=== PATIENT | female | born 1995 | race Caucasian/White ===

== ENCOUNTER 2016-10-23 23:35 | Emergency (ER) | payer OTHER ==
[~2016-10-23] VITALS: Ht 160 cm; Wt 72.6 kg
[2016-10-23 23:35] VITALS: BP 105/67
[~2016-10-23 23:35] MED LIST: ONDA4TAB10 SL; SULF1TAB24 PO
[2016-10-24] MEDS ORDERED: HYDROCODONE/APAP 5/325MG TABLET. PO ONE (00:15)
[2016-10-24] MEDS ORDERED: MORPHINE SULFATE 4 MG/ML DISP.SYRIN. IM ONE (00:45)
[2016-10-24] MEDS ORDERED: HYDR-971 PO (01:10)
[2016-10-24] MEDS ORDERED: ONDA4TAB7 PO (01:10)
--- NOTE | 2016-10-24 01:10 | PHYS DOC ---
Past Medical History Past Medical History: Other Additional Past Medical Histor: NF 1,Hypoglycemic. Past Surgical History: Tonsillectomy, Other Additional Past Surgical Histo: Adnoids. Alcohol Use: Occasionally Drug Use: None Adult General Chief Complaint Chief Complaint: UPPER EXTREMITY INJURY [facility] HPI 21-year-old female who was standing on a laundry basket and fell onto her right elbow on a concrete surface. She denies significant pain and difficulty with range of motion in the right upper extremity. She states she cannot move her right elbow secondary to pain. She also complains of some mild right wrist tenderness as well. She denies hitting her head or having any loss of consciousness. She denies any headache or neck pain. She denies any chest pain or shortness of breath. Review of Systems Review of Systems Constitutional: Denies fever or chills [] Eyes: Denies change in visual acuity, redness, or eye pain [] HENT: Denies nasal congestion or sore throat [] Respiratory: Denies cough or shortness of breath [] Cardiovascular: No additional information not addressed in HPI [] GI: Denies abdominal pain, nausea, vomiting, bloody stools or diarrhea [] : Denies dysuria or hematuria [] Musculoskeletal: Denies back pain, has joint pain [] Integument: Denies rash or skin lesions [] Neurologic: Denies headache, focal weakness or sensory changes [] Endocrine: Denies polyuria or polydipsia [] Current Medications Current Medications Current Medications Medications (Trade) Dose Ordered Sig/Ronaldo Start Time Stop Time Status Last Admin Dose Admin Acetaminophen/ Hydrocodone Bitart (Lortab 5/325) 1 tab 1X ONCE 10/24/16 00:15 10/24/16 00:16 DC 10/24/16 00:19 1 TAB Morphine Sulfate 4 mg 1X ONCE 10/24/16 00:45 10/24/16 00:46 DC 10/24/16 00:54 4 MG Ondansetron HCl (Zofran Odt) 4 mg 1X ONCE 10/24/16 01:15 10/24/16 01:16 DC 10/24/16 01:03 4 MG Allergies Allergies Allergies Coded Allergies Type Severity Reaction Last Updated Verified No Known Drug Allergies 09/13/13 No Physical Exam Physical Exam Constitutional: Well developed, well nourished, no acute distress, non-toxic appearance. [] HENT: Normocephalic, atraumatic, bilateral external ears normal, oropharynx moist, no oral exudates, nose normal. [] Eyes: PERRLA, EOMI, conjunctiva normal, no discharge. [] Neck: Normal range of motion, no tenderness, supple, no stridor. [] Cardiovascular:Heart rate regular rhythm, no murmur [] Lungs & Thorax: Bilateral breath sounds clear to auscultation [] Abdomen: Bowel sounds normal, soft, no tenderness, no masses, no pulsatile masses. [] Skin: Warm, dry, no erythema, no rash. [] Back: No tenderness, no CVA tenderness. [] Extremities: No tenderness, no cyanosis, no clubbing, ROM intact, no edema. [] Neurologic: Alert and oriented X 3, normal motor function, normal sensory function, no focal deficits noted. [] Psychologic: Affect normal, judgement normal, mood normal. [] Current Patient Data Vital Signs Vital Signs Date Time Temp Pulse Resp B/P Pulse Ox O2 Delivery O2 Flow Rate FiO2 10/24/16 00:54 20 97 Room Air 10/23/16 23:35 99.1 93 105/67 99.1 Lab Values Laboratory Tests Test 10/24/16 00:00 POC Urine HCG, Qualitative Hcg negative (Negative) EKG EKG [] Radiology/Procedures Radiology/Procedures 3 view of the elbow and right forearm as well as a possible right elbow fracture with evidence of a posterior fat pad sign. Course & Med Decision Making Course & Med Decision Making Pertinent Labs and Imaging studies reviewed. (See chart for details) This otherwise he'll be 21-year-old female who fell onto her right elbow was put in a posterior elbow splint and will follow closely with the orthopedic surgeon next several days with strict instruction remain nonweightbearing on the right upper extremity. She was given a prescription for pain medications and was given a sling for her splint. Dragon Disclaimer Dragon Disclaimer This electronic medical record was generated, in whole or in part, using a voice recognition dictation system. Departure Departure Impression: Primary Impression: Elbow injury Disposition: HOME, SELF-CARE Condition: STABLE Referrals: NO PCP (PCP) JOSE DAVID AYALA MD Patient Instructions: Elbow Injury-Brief Additional Instructions: Please remain non-weight bearing to the right upper extremity in your splint device until you can receive follow up with the orthopedic surgeon. Take your pain and nausea medication as needed. Return to the ER if you develop any worsening of your symptoms. Scripts Hydrocodone/Apap 5-325 ([place] 5-325 Tablet)1 Each Tablet1 Tab PO PRN Q6HRS PRN PAIN #14 TAB Prov:CHEO BLISS DO 10/24/16 Ondansetron Hcl (Zofran)4 Mg Tablet4 Mg PO BID PRN NAUSEA/VOMITING #10 TAB Prov:CHEO BLISS DO 10/24/16 CHEO BLISS DO Oct 24, 2016 01:10
[2016-10-24] MEDS ORDERED: ONDANSETRON ODT 4 MG TAB.RAPDIS PO ONE (01:15)
--- NOTE | 2016-10-24 02:56 | RAD ---
INDICATION: Trauma COMPARISON: None IMPRESSION: Right forearm: Two views obtained without definite acute fracture or dislocation. Right elbow: Four views obtained. There is a joint effusion seen which could be from soft tissue injury although occult fracture also in differential. There is no definitive well defined displaced fracture line identified although there is a questionable lucency through portion of the radial head on one view but this is a questionable finding. Electronically signed by: Kamari Pozo (Oct 24, 2016 02:54:28)
== END 2016-10-24 01:17 | disposition home or self-care (01) ==
LOC: ER 23:35
DX: S59.901A Unspecified injury of right elbow, initial encounter (principal); W19.XXXA Unspecified fall, initial encounter; Y93.89 Activity, other specified; Y92.89 Other specified places as the place of occurrence of the external cause; Y99.8 Other external cause status
CPT/HCPCS: 29105; 73080; 73090; 81025; 96372; 99284; J2270; Q0162

== ENCOUNTER 2016-12-27 10:23 | Emergency (ER) | payer OTHER ==
[~2016-12-27 10:23] MED LIST changes: +HYDR-971 PO; +ONDA4TAB7 PO
[2016-12-27 12:44] LABS: BILIRUBIN,URINE NEGATIVE (NEG); GLUCOSE,URINE NEGATIVE (NEG); NITRITE,URINE NEGATIVE (NEG); PH,URINE 7.5; PROTEIN,URINE NEGATIVE (NEG-TRACE); UROBILINOGEN,URINE 0.2 mg/dL (0.2 mg/dL)
[2016-12-27 12:57] LABS: RBC,URINE 0 /HPF (0-2)
[2016-12-27 12:58] LABS: BACTERIA,URINE FEW /HPF (0-FEW); SQUAMOUS EPITHELIAL CELL,UR MOD /LPF
[2016-12-27 13:08] VITALS: BP 98/59
[2016-12-27] MEDS ORDERED: FAMO20TA5 PO (13:17)
--- NOTE | 2016-12-27 13:17 | PHYS DOC ---
Past Medical History Past Medical History: Other Additional Past Medical Histor: NF 1, Hypoglycemic Past Surgical History: Tonsillectomy, Other Additional Past Surgical Histo: Adnoids Alcohol Use: Occasionally Drug Use: None Adult General Chief Complaint Chief Complaint: ABDOMINAL PAIN HPI HPI Patient is a 21 year old female who presents with left upper quadrant abdominal pain worse at night when she lays down. She also notes intermittent nausea and vomiting. States sometimes she has low back pain worse with movement. She states symptoms have been for the past 2-3 months. She had a neg home test this week. She notes regular menses until this month; had 1 day of heavy cycle about 1.5 wk ago; had regular cycle approx 2.5 weeks ago. She denies f/c, dark or bloody stools, dysuria, hematuria, vaginal bleeding or discharge. Review of Systems Review of Systems Constitutional: Denies fever or chills [] Eyes: Denies change in visual acuity, redness, or eye pain [] HENT: Denies nasal congestion or sore throat [] Respiratory: Denies cough or shortness of breath [] Cardiovascular: No additional information not addressed in HPI [] GI: Denies bloody stools or diarrhea [] : Denies dysuria or hematuria [] Musculoskeletal: Denies back pain or joint pain [] Integument: Denies rash or skin lesions [] Neurologic: Denies headache, focal weakness or sensory changes [] Endocrine: Denies polyuria or polydipsia [] Allergies Allergies Allergies Coded Allergies Type Severity Reaction Last Updated Verified No Known Drug Allergies 09/13/13 No Physical Exam Physical Exam Constitutional: Well developed, well nourished, no acute distress, non-toxic appearance. [] HENT: Normocephalic, atraumatic, bilateral external ears normal, oropharynx moist, nose normal. [] Eyes: PERRLA, EOMI. [] Neck: Normal range of motion, supple. [] Cardiovascular:Heart rate regular rhythm [] Lungs & Thorax: Bilateral breath sounds clear to auscultation [] Abdomen: Bowel sounds normal, soft, no tenderness. [] Skin: Warm, dry, no erythema, no rash. [] Back: No tenderness, no CVA tenderness. [] Extremities: No tenderness, ROM intact, no edema. [] Neurologic: Alert and oriented X 3, normal motor function, normal sensory function, no focal deficits noted. [] Psychologic: Affect normal, judgement normal, mood normal. [] Current Patient Data Vital Signs Vital Signs Date Time Temp Pulse Resp B/P Pulse Ox O2 Delivery O2 Flow Rate FiO2 12/27/16 13:08 90 16 98/59 100 Room Air 12/27/16 11:57 98.1 98.1 Lab Values Laboratory Tests Test 12/27/16 10:43 12/27/16 12:20 12/27/16 12:33 POC Urine HCG, Qualitative Hcg negative (Negative) Urine Collection Type Unknown Urine Color Yellow Urine Clarity Clear Urine pH 7.5 Urine Specific [place] 1.025 Urine Protein Negativemg/dL (NEG-TRACE) Urine Glucose (UA) Negativemg/dL (NEG) Urine Ketones (Stick) Negativemg/dL (NEG) Urine Blood Negative (NEG) Urine Nitrite Negative (NEG) Urine Bilirubin Negative (NEG) Urine Urobilinogen Dipstick 0.2mg/dL (0.2 mg/dL) Urine Leukocyte Esterase Small (NEG) Urine RBC 0/HPF (0-2) Urine WBC 11-20/HPF (0-4) Urine Squamous Epithelial Cells Mod/LPF Urine Bacteria Few/HPF (0-FEW) Urine Mucus Marked/LPF Glucose (Fingerstick) 82mg/dL (70-99) Course & Med Decision Making Course & Med Decision Making Pertinent Labs and Imaging studies reviewed. (See chart for details) Glucose is 84, UCG is neg, urine is unremarkable. Discussed possibility of GERD vs preimplantation bleeding vs completed miscarriage vs other. Discussed supportive care. Return precautions given. She understands and agrees with plan. Noelon Disclaimer Margo Disclaimer This electronic medical record was generated, in whole or in part, using a voice recognition dictation system. Departure Departure Impression: Primary Impression: Abdominal pain Disposition: HOME, SELF-CARE Condition: STABLE Referrals: NO PCP (PCP) Patient Instructions: Abdominal Pain (Nonspecific) Additional Instructions: Take famotidine for possible acid reflux. Follow up with your primary care doctor within 1 week. Return for any concerns. Scripts Famotidine 20 Mg Znhoog37 Mg PO BID #30 TAB Prov:Fuentes JONES MD 12/27/16 Problem Qualifiers Primary Impression: Abdominal pain Abdominal location: left upper quadrant Qualified Code: R10.12 - Left upper quadrant pain Fuentes JONES MD Dec 27, 2016 13:17
== END 2016-12-27 13:39 | disposition home or self-care (01) ==
LOC: ER 10:23
DX: R10.12 Left upper quadrant pain (principal); R11.2 Nausea with vomiting, unspecified; M54.5 Low back pain
CPT/HCPCS: 81001; 81025; 82947; 87086; 99284

== ENCOUNTER 2017-01-14 08:16 | Emergency (ER) | payer OTHER ==
[~2017-01-14] VITALS: Ht 162.6 cm; Wt 72.6 kg
[~2017-01-14 08:16] MED LIST changes: +FAMO20TA5 PO
[2017-01-14 08:38] VITALS: BP 108/68
[2017-01-14 08:56] LABS: BILIRUBIN,URINE NEGATIVE (NEG); GLUCOSE,URINE NEGATIVE (NEG); NITRITE,URINE NEGATIVE (NEG); PROTEIN,URINE NEGATIVE (NEG-TRACE); UROBILINOGEN,URINE 0.2 mg/dL (0.2 mg/dL)
[2017-01-14] MEDS ORDERED: ONDA4TAB10 SL (08:59)
[2017-01-14] MEDS ORDERED: LOPE2TAB27 PO (08:59)
--- NOTE | 2017-01-14 09:06 | PHYS DOC ---
Past Medical History Past Medical History: No Pertinent History, Other Additional Past Medical Histor: NF 1, Hypoglycemic Past Surgical History: Tonsillectomy, Other Additional Past Surgical Histo: Adenoids Alcohol Use: Occasionally Drug Use: None Adult General Chief Complaint Chief Complaint: diarrhea HPI HPI Patient is a 21 year old male who presents with diarrhea for 3 days. She states multiple stools, crampy abdominal pain when she is about stool. She's had nausea with vomiting. No known fevers, no known sick contacts. She's not attempted any symptom controlling medication. No abdominal surgeries, does not follow with primary care physician. Review of Systems Review of Systems Constitutional: Denies fever or chills [] Eyes: Denies change in visual acuity, redness, or eye pain [] HENT: Denies nasal congestion or sore throat [] Respiratory: Denies cough or shortness of breath [] Cardiovascular: Denies chest pain GI: per history of present illness : Denies dysuria or hematuria [] Musculoskeletal: Denies back pain or joint pain [] Integument: Denies rash or skin lesions [] Neurologic: Denies headache, focal weakness or sensory changes [] Allergies Allergies Allergies Coded Allergies Type Severity Reaction Last Updated Verified No Known Drug Allergies 09/13/13 No Physical Exam Physical Exam Constitutional: Well developed, well nourished, no acute distress, non-toxic appearance. [] HENT: Normocephalic, atraumatic, bilateral external ears normal, oropharynx moist, no oral exudates, nose normal. [] Eyes: PERRLA, EOMI, conjunctiva normal, no discharge. [] Neck: Normal range of motion, no tenderness, supple, no stridor. [] Cardiovascular:Heart rate regular rhythm, no murmur [] Lungs & Thorax: Bilateral breath sounds clear to auscultation [] Abdomen: Bowel sounds normal, soft, no tenderness, no masses, no pulsatile masses. No guarding, no peritoneal signs, nondistended Skin: Warm, dry, no erythema, no rash. [] Back: No tenderness, no CVA tenderness. [] Extremities: No tenderness, no cyanosis, no clubbing, ROM intact, no edema. [] Neurologic: Alert and oriented X 3, normal motor function, normal sensory function, no focal deficits noted. [] Psychologic: Affect normal, judgement normal, mood normal. [] Current Patient Data Vital Signs Vital Signs Date Time Temp Pulse Resp B/P (MAP) Pulse Ox O2 Delivery O2 Flow Rate FiO2 01/14/17 08:38 97.0 89 18 108/68 (81) 99 Room Air 97.0 Lab Values Laboratory Tests Test 01/14/17 07:53 POC Urine HCG, Qualitative Hcg negative (Negative) EKG EKG [] Radiology/Procedures Radiology/Procedures [] Course & Med Decision Making Course & Med Decision Making Pertinent Labs and Imaging studies reviewed. (See chart for details) Reviewed patient's medical record. Vital signs stable, afebrile. We'll treat for viral gastroenteritis with loperamide and Zofran ODT. Referral sheet given to the patient to schedule follow-up. Dragon Disclaimer Dragon Disclaimer This electronic medical record was generated, in whole or in part, using a voice recognition dictation system. Departure Departure Impression: Primary Impression: Viral gastroenteritis Disposition: HOME, SELF-CARE Condition: STABLE Patient Instructions: Viral Gastroenteritis, Diet for Diarrhea, Adult, Form - Excuse from Work, School, or Physical Activity Scripts Ondansetron (ZOFRAN ODT) 4 Mg Tab.rapdis 1 TAB SL Q8HRS Y for NAUSEA, #10 TAB Prov: KONRAD COELLO MD 01/14/17 Loperamide Hcl (LOPERAMIDE) 2 Mg Tablet 2 MG PO prn each watery stoo, #16 TAB do not take more than 8 tabs in 1 day Prov: KONRAD COELLO MD 01/14/17 KONRAD COELLO MD January 14, 2017 09:06
[2017-01-14 09:27] LABS: BACTERIA,URINE FEW /HPF (0-FEW); RBC,URINE >40 /HPF (0-2); SQUAMOUS EPITHELIAL CELL,UR MOD /LPF; WBC,URINE 0 /HPF (0-4)
== END 2017-01-14 09:03 | disposition home or self-care (01) ==
LOC: ER 09:01
DX: A08.4 Viral intestinal infection, unspecified (principal)
CPT/HCPCS: 81001; 81025; 99283

== ENCOUNTER 2017-02-20 12:20 | Emergency (ER) | payer OTHER ==
[~2017-02-20] VITALS: Ht 162.6 cm; Wt 76.2 kg
[~2017-02-20 12:20] MED LIST changes: +LOPE2TAB27 PO
[2017-02-20 12:25] VITALS: BP 107/55
[2017-02-20 13:15] LABS: BILIRUBIN,URINE NEGATIVE (NEG); GLUCOSE,URINE NEGATIVE (NEG); NITRITE,URINE NEGATIVE (NEG); PROTEIN,URINE NEGATIVE (NEG-TRACE); UROBILINOGEN,URINE 0.2 mg/dL (0.2 mg/dL)
[2017-02-20 13:21] LABS: BACTERIA,URINE MODERATE /HPF (0-FEW); RBC,URINE 0 /HPF (0-2); SQUAMOUS EPITHELIAL CELL,UR MOD /LPF
[2017-02-20 14:10] LABS: BASO % 0 % (0-3); EOS % 2 % (0-3); HEMATOCRIT 38.7 % (36.0-47.0); HEMOGLOBIN 13.5 g/dL (12.0-15.5); LYMPH % 29 % (24-48); MEAN CORPUSCULAR HEMOGLOBIN 31 pg (25-35); MEAN CORPUSCULAR HGB CONC 35 g/dL (31-37); MEAN CORPUSCULAR VOLUME 90 fL (79-100); MONO % 8 % (0-9); NEUT % 61 % (31-73); PLATELET COUNT 260 x10^3/uL (140-400)
[2017-02-20 14:11] LABS: CALCIUM 9.1 mg/dL (8.5-10.1); CREATININE 0.6 mg/dL (0.6-1.0); GFR 123.9; POTASSIUM 3.7 mmol/L (3.5-5.1)
[2017-02-20 14:17] LABS: ALBUMIN 3.9 g/dL (3.4-5.0); ALBUMIN/GLOBULIN RATIO 1.4 (1.0-1.7); TOTAL BILIRUBIN 0.9 mg/dL (0.2-1.0); TOTAL PROTEIN 6.7 g/dL (6.4-8.2)
--- NOTE | 2017-02-20 14:36 | RAD ---
Indication vaginal bleeding. Reportedly . There has been no confirmation of . A quantitative hCG value is pending and not available at the time of the interpretation of this exam. Initially transabdominal scans were obtained. Initial transabdominal scans were supplemented with transvaginal scans. The uterus measures approximately 10 x 6 x 5 cm. The endometrium is thickened measuring approximately 2.3 cm. At the fundus of the uterus there is a low-density mass which could represent a gestational sac. A pseudogestational sac is not excluded. No pole or yolk sac is seen. There is a hypoechoic mass associated with the left ovary measuring approximately 2.4 cm most compatible with a physiologic cyst. The right ovary appears unremarkable. IMPRESSION: Thickened endometrium. Low-density mass at the fundus of the uterus may represent a gestational sac. Diagnostic considerations include normal, early, . Ectopic is not excluded. The findings on this ultrasound should be correlated with quantitative hCG value. Physiologic cyst associated with the left ovary
[2017-02-20] MEDS ORDERED: CEPHALEXIN 250 MG CAPSULE. PO SCH (15:15)
[2017-02-20] MEDS ORDERED: CEPH-264 PO (15:15)
--- NOTE | 2017-02-20 21:08 | ED.ADGEN ---
Past Medical History Past Medical History: No Pertinent History, Other Additional Past Medical Histor: NF 1, Hypoglycemic, MISCARRIAGE Past Surgical History: Tonsillectomy, Other Additional Past Surgical Histo: Adenoids Alcohol Use: Occasionally Drug Use: None Adult General Chief Complaint Chief Complaint: VAGINAL BLEEDING HPI HPI Patient is a 21 year old woman, to with a history of 1 miscarriage, 6 week by dates, who presents the emergency department with a complaint of vaginal bleeding and cramping. Patient states that she had a positive test at home last week. She states that over the last several days she is expressing cramping, and then today she passed a large dark red clot while using the restroom. She denies any further bleeding, or cramping currently. Denies any lightheadedness or dizziness, any injuries, states she occasionally has some back pain. States she did experience some discomfort with urination that began today. Patient states she had a previous miscarriage, unclear etiology. She states she does have an appointment to follow up with her [employer], at [facility]. Patient is taking vitamins. Review of Systems Review of Systems Constitutional: Denies fever or chills. [] Eyes: Denies change in visual acuity. [] HENT: Denies nasal congestion or sore throat. [] Respiratory: Denies cough or shortness of breath. [] Cardiovascular: Denies chest pain or edema. [] GI: Denies abdominal pain, nausea, vomiting, bloody stools or diarrhea. [] : Denies dysuria. [] Musculoskeletal: Denies back pain or joint pain. [] Integument: Denies rash. [] Neurologic: Denies headache, focal weakness or sensory changes. [] Endocrine: Denies polyuria or polydipsia. [] Lymphatic: Denies swollen glands. [] Psychiatric: Denies depression or anxiety. [] Current Medications Current Medications Current Medications Medications (Trade) Dose Ordered Sig/Ronaldo Start Time Stop Time Status Last Admin Dose Admin Cephalexin HCl (Keflex) 500 mg BID 02/20/17 15:15 02/20/17 16:02 DC 02/20/17 15:30 500 MG Allergies Allergies Allergies Coded Allergies Type Severity Reaction Last Updated Verified No Known Drug Allergies 09/13/13 No Physical Exam Physical Exam Constitutional: Well developed, well nourished, no acute distress, non-toxic appearance. [] HENT: Normocephalic, atraumatic, bilateral external ears normal, oropharynx moist, no oral exudates, nose normal. [] Eyes: PERRLA, EOMI, conjunctiva normal, no discharge. [] Neck: Normal range of motion, no tenderness, supple, no stridor. [] Cardiovascular:Heart rate regular rhythm, no murmur [] Lungs & Thorax: Bilateral breath sounds clear to auscultation [] Abdomen: Bowel sounds normal, soft, no tenderness, no masses, no pulsatile masses. [] Skin: Warm, dry, no erythema, no rash. [] Back: No tenderness, no CVA tenderness. [] Extremities: No tenderness, no cyanosis, no clubbing, ROM intact, no edema. [] Neurologic: Alert and oriented X 3, normal motor function, normal sensory function, no focal deficits noted. [] Psychologic: Affect normal, judgement normal, mood normal. [] Current Patient Data Vital Signs Vital Signs Date Time Temp Pulse Resp B/P (MAP) Pulse Ox O2 Delivery O2 Flow Rate FiO2 02/20/17 12:25 98.7 86 18 107/55 (72) 99 Room Air 98.7 Lab Values Laboratory Tests Test 02/20/17 12:25 02/20/17 13:55 Urine Collection Type Void Urine Color Yellow Urine Clarity Clear Urine pH 6.0 Urine Specific [place] 1.025 Urine Protein Negative mg/dL (NEG-TRACE) Urine Glucose (UA) Negative mg/dL (NEG) Urine Ketones (Stick) 40 mg/dL (NEG) Urine Blood Negative (NEG) Urine Nitrite Negative (NEG) Urine Bilirubin Negative (NEG) Urine Urobilinogen Dipstick 0.2 mg/dL (0.2 mg/dL) Urine Leukocyte Esterase Small (NEG) Urine RBC 0 /HPF (0-2) Urine WBC 5-10 /HPF (0-4) Urine Squamous Epithelial Cells Mod /LPF Urine Bacteria Moderate /HPF (0-FEW) White Blood Count 7.0 x10^3/uL (4.0-11.0) Red Blood Count 4.30 x10^6/uL (3.50-5.40) Hemoglobin 13.5 g/dL (12.0-15.5) Hematocrit 38.7 % (36.0-47.0) Mean Corpuscular Volume 90 fL (79-100) Mean Corpuscular Hemoglobin 31 pg (25-35) Mean Corpuscular Hemoglobin Concent 35 g/dL (31-37) Red Cell Distribution Width 13.0 % (11.5-14.5) Platelet Count 260 x10^3/uL (140-400) Neutrophils (%) (Auto) 61 % (31-73) Lymphocytes (%) (Auto) 29 % (24-48) Monocytes (%) (Auto) 8 % (0-9) Eosinophils (%) (Auto) 2 % (0-3) Basophils (%) (Auto) 0 % (0-3) Neutrophils # (Auto) 4.2 x10^3uL (1.8-7.7) Lymphocytes # (Auto) 2.0 x10^3/uL (1.0-4.8) Monocytes # (Auto) 0.6 x10^3/uL (0.0-1.1) Eosinophils # (Auto) 0.2 x10^3/uL (0.0-0.7) Basophils # (Auto) 0.0 x10^3/uL (0.0-0.2) Maternal Serum HCG Beta Subunit 5710 mIU/mL (0-5) H Sodium Level 140 mmol/L (136-145) Potassium Level 3.7 mmol/L (3.5-5.1) Chloride Level 106 mmol/L (98-107) Carbon Dioxide Level 25 mmol/L (21-32) Anion Gap 9 (6-14) Blood Urea Nitrogen 8 mg/dL (7-20) Creatinine 0.6 mg/dL (0.6-1.0) Estimated GFR (Cockcroft-Gault) 123.9 BUN/Creatinine Ratio 13 (6-20) Glucose Level 89 mg/dL (70-99) Calcium Level 9.1 mg/dL (8.5-10.1) Total Bilirubin 0.9 mg/dL (0.2-1.0) Aspartate Amino Transferase (AST) 16 U/L (15-37) Alanine Aminotransferase (ALT) 21 U/L (14-59) Alkaline Phosphatase 61 U/L (46-116) Total Protein 6.7 g/dL (6.4-8.2) Albumin 3.9 g/dL (3.4-5.0) Albumin/Globulin Ratio 1.4 (1.0-1.7) Laboratory Tests 02/20/17 13:55 Laboratory Tests 02/20/17 13:55 Microbiology 02/20/17 Wet Prep - Final, Complete EKG EKG Not indicated. [] Radiology/Procedures Radiology/Procedures [][facility] [address] [place] [address] IMAGING REPORT Signed PATIENT: SASHA EATON ACCOUNT: [id number] : 1995 LOCATION: ER AGE: 21 SEX: F EXAM STATUS: REG ER ORD. PHYSICIAN: LUCY WEN DO REASON: Preg vag bleeding PROCEDURE: OB <14 WKS W/TV Indication vaginal bleeding. Reportedly . There has been no confirmation of . A quantitative hCG value is pending and not available at the time of the interpretation of this exam. Initially transabdominal scans were obtained. Initial transabdominal scans were supplemented with transvaginal scans. The uterus measures approximately 10 x 6 x 5 cm. The endometrium is thickened measuring approximately 2.3 cm. At the fundus of the uterus there is a low-density mass which could represent a gestational sac. A pseudogestational sac is not excluded. No pole or yolk sac is seen. There is a hypoechoic mass associated with the left ovary measuring approximately 2.4 cm most compatible with a physiologic cyst. The right ovary appears unremarkable. IMPRESSION: Thickened endometrium. Low-density mass at the fundus of the uterus may represent a gestational sac. Diagnostic considerations include normal, early, . Ectopic is not excluded. The findings on this ultrasound should be correlated with quantitative hCG value. Physiologic cyst associated with the left ovary DICTATED and SIGNED BY: DULCE FRANCOIS MD DATE: 02/20/17 1427 CC: LUCY WEN DO; NO PCP ~ Course & Med Decision Making Course & Med Decision Making Pertinent Labs and Imaging studies reviewed. (See chart for details) Patient well-appearing, is not experiencing any further bleeding at this time, no cramping currently. She states she did take Tylenol at home previously. Pelvic examination reveals a closed os, with a moderate amount of white discharge, no tenderness or rebound is identified. Ultrasound reveals a possible gestational sac versus a pseudocyst gestational sac, with some irregularity of the endometrium. I had a lengthy discussion at bedside with patient regarding his findings. Currently her beta quantitative assay is 5710, and the findings on ultrasound may correlate with an early single uterine , a pseudo-gestational sac consistent with a nonviable , or potentially an ectopic with a pseudo-gestational sac. We discussed the importance of the patient following up promptly with her [employer] for additional evaluation, patient started to call the office today, she is given a copy of her ultrasound results and beta quantitative assay number to review with her physician's office, to determine the course of action for managing this . She was instructed to continue her vitamins, she was also given Keflex, first dose in the ED, the patient for 1 week instructed to follow up for test of cure, she has bacteria in the urine and was experiencing some pain with urination. Otherwise laboratory studies were unremarkable, as was wet prep. Patient tolerated oral medications in the ED without issue, has had no further cramping or bleeding. We did discuss concerning symptoms that would return to the emergency department. Patient voiced understanding and agreement with precautions and plan as stated. Patient discharged home in stable condition with plan as above. Dragon Disclaimer Dragon Disclaimer This electronic medical record was generated, in whole or in part, using a voice recognition dictation system. Departure Impression: Primary Impression: Vaginal bleeding in Disposition: 01 HOME, SELF-CARE Condition: IMPROVED Scripts Cephalexin (KEFLEX) 500 Mg Capsule 1 CAP PO BID, #14 CAP Prov: LUCY WEN DO 02/20/17 LUCY WEN DO Feb 20, 2017 21:08
== END 2017-02-20 13:55 | disposition home or self-care (01) ==
LOC: ER 12:20
DX: O20.9 Hemorrhage in early pregnancy, unspecified (principal); O26.891 Other specified pregnancy related conditions, first trimester; R82.71 Bacteriuria; R30.9 Painful micturition, unspecified; Z3A.01 Less than 8 weeks gestation of pregnancy
CPT/HCPCS: 36415; 76801; 76817; 80053; 81001; 81025; 84702; 85027; 86900; 86901; 87086; 87491; 87591; 99285; Q0111

== ENCOUNTER 2017-03-10 12:41 | Emergency (ER) | payer OTHER ==
[~2017-03-10 12:41] MED LIST changes: +CEPH-264 PO
[2017-03-10] MEDS ORDERED: ACETAMINOPHEN 325 MG TABLET. PO ONE (13:15)
[2017-03-10] MEDS ORDERED: ONDANSETRON PF 4 MG/2 ML VIAL. IV ONE (13:15)
[2017-03-10] MEDS ORDERED: IV NORMAL SALINE 1000ML BAG 1,000 ML IV ONE ×2 (13:15→14:15)
--- NOTE | 2017-03-10 13:15 | PHYS DOC ---
Past Medical History Past Medical History: No Pertinent History, Other Additional Past Medical Histor: NF 1, Hypoglycemic, MISCARRIAGE Past Surgical History: Tonsillectomy, Other Additional Past Surgical Histo: Adenoids Alcohol Use: Occasionally Drug Use: None Adult General Chief Complaint Chief Complaint: VOMITING IN [facility] HPI Patient is a 21 year old female presents to the emergency department stating that she's been having some nausea and vomiting for the last 2 weeks. She states that she has vomited some any times in the last 24 hour she is unable to keep track. She denies any blood being in the emesis. Patient states her last menstrual period was in December. She states that she is approximately 8-10 weeks . She states that her [employer] has tried multiple different things for nausea and vomiting in which they have not helped. Patient is a 4 para 2 AB 1. Patient denies any abdominal pain. She denies any vaginal discharge. She does state that stings to urinate. Review of Systems Review of Systems Constitutional: Denies fever or chills [] Eyes: Denies change in visual acuity, redness, or eye pain [] HENT: Denies nasal congestion or sore throat [] Respiratory: Denies cough or shortness of breath [] Cardiovascular: No additional information not addressed in HPI [] GI: Denies abdominal pain, nausea, vomiting, bloody stools or diarrhea [] : dysuria denies hematuria [] Musculoskeletal: Denies back pain or joint pain [] Integument: Denies rash or skin lesions [] Neurologic: Denies headache, focal weakness or sensory changes [] Endocrine: Denies polyuria or polydipsia [] Current Medications Current Medications Current Medications Medications (Trade) Dose Ordered Sig/Ronaldo Start Time Stop Time Status Last Admin Dose Admin Acetaminophen (Tylenol) 650 mg 1X ONCE 03/10/17 13:15 03/10/17 13:16 DC 03/10/17 14:01 650 MG Ondansetron HCl (Zofran) 4 mg 1X ONCE 03/10/17 13:15 03/10/17 13:16 DC 03/10/17 14:00 4 MG Sodium Chloride 1,000 ml @ 1,000 mls/hr 1X ONCE 03/10/17 14:15 03/10/17 15:14 DC 03/10/17 14:50 1,000 MLS/HR Allergies Allergies Allergies Coded Allergies Type Severity Reaction Last Updated Verified No Known Drug Allergies 09/13/13 No Physical Exam Physical Exam Constitutional: Well developed, well nourished, no acute distress, non-toxic appearance. [] HENT: Normocephalic, atraumatic, bilateral external ears normal, oropharynx moist, no oral exudates, nose normal. [] Eyes: PERRLA, EOMI, conjunctiva normal, no discharge. [] Neck: Normal range of motion, no tenderness, supple, no stridor. [] Cardiovascular:Heart rate regular rhythm, no murmur [] Lungs & Thorax: Bilateral breath sounds clear to auscultation [] Abdomen: Bowel sounds normal, soft, no tenderness, no masses, no pulsatile masses. [] Skin: Warm, dry, no erythema, no rash. [] Back: No tenderness Extremities: No tenderness, no cyanosis, no clubbing, ROM intact, no edema. [] Neurologic: Alert and oriented X 3, normal motor function, normal sensory function, no focal deficits noted. [] Psychologic: Affect normal, judgement normal, mood normal. [] Current Patient Data Vital Signs Vital Signs Date Time Temp Pulse Resp B/P (MAP) Pulse Ox O2 Delivery O2 Flow Rate FiO2 03/10/17 13:12 98.5 68 18 86/53 (64) 96 Room Air 98.5 Lab Values Laboratory Tests Test 03/10/17 12:15 03/10/17 13:05 POC Urine HCG, Qualitative Hcg positive (Negative) Urine Collection Type Unknown Urine Color Yellow Urine Clarity Cloudy Urine pH 6.5 Urine Specific [place] 1.015 Urine Protein Negative mg/dL (NEG-TRACE) Urine Glucose (UA) Negative mg/dL (NEG) Urine Ketones (Stick) Trace mg/dL (NEG) Urine Blood Negative (NEG) Urine Nitrite Negative (NEG) Urine Bilirubin Negative (NEG) Urine Urobilinogen Dipstick 0.2 mg/dL (0.2 mg/dL) Urine Leukocyte Esterase Large (NEG) Urine RBC 0 /HPF (0-2) Urine WBC 5-10 /HPF (0-4) Urine Squamous Epithelial Cells Mod /LPF Urine Bacteria Moderate /HPF (0-FEW) Urine Mucus Marked /LPF EKG EKG [] Radiology/Procedures Radiology/Procedures [] Course & Med Decision Making Course & Med Decision Making Pertinent Labs and Imaging studies reviewed. (See chart for details) Patient's urine was positive for urinary tract infection. She is provided with 2 L of IV fluids as well as Zofran here in the emergency department. Patient tolerated by mouth challenge without difficulty. Patient will be discharged home in stable condition signs and symptoms to return back to emergency department as been provided. Patient was encouraged to follow-up with her OB/ [employer]. She was encouraged to drink plenty of fluids such as water and cranberry juice avoid cranberry juice cocktail, carbonated beverages, citrus fruits and alcohol and caffeine. Patient agrees with discharge instructions treatment regimens and follow-up recommendations. [] Dragon Disclaimer Dragon Disclaimer This electronic medical record was generated, in whole or in part, using a voice recognition dictation system. Departure Departure Impression: Primary Impression: UTI (urinary tract infection) Additional Impression: Vomiting of Disposition: 01 HOME, SELF-CARE (actually think that we have the) Condition: STABLE Referrals: NO PCP (PCP) Patient Instructions: Nausea and Vomiting, - Urinary Tract Infection , Urinary Tract Infection, [id number] Additional Instructions: Activity as tolerated activity as tolerated. Drink plenty of fluids such as water and cranberry juice. Avoid coverages cocktail, carbonated beverages, caffeine, citrus fruits and alcohol sees her considered irritants to the bladder. Medication as prescribed. Follow-up with your primary care physician in the next 7-10 days to make sure you cleared the urinary tract infection. Follow-up with your [employer]OR [employer]. Return back to emergency department sign symptoms of become worse. Scripts Ondansetron (ZOFRAN ODT) 4 Mg Tab.rapdis 1 TAB SL Q8HRS, #10 TAB Prov: ROSA MARIA HAINES APRN 03/10/17 Nitrofurantoin Monohyd/M-Cryst (MACROBID 100 MG CAPSULE) 100 Mg Capsule 1 CAP PO BID, #14 CAP Prov: ROSA MARIA HAINES APRN 03/10/17 Problem Qualifiers ROSA MAIRA HAINES APRN Mar 10, 2017 13:14
[2017-03-10 13:16] LABS: BILIRUBIN,URINE NEGATIVE (NEG); GLUCOSE,URINE NEGATIVE (NEG); NITRITE,URINE NEGATIVE (NEG); PH,URINE 6.5; PROTEIN,URINE NEGATIVE (NEG-TRACE); UROBILINOGEN,URINE 0.2 mg/dL (0.2 mg/dL)
[2017-03-10 13:29] LABS: BACTERIA,URINE MODERATE /HPF (0-FEW); RBC,URINE 0 /HPF (0-2); SQUAMOUS EPITHELIAL CELL,UR MOD /LPF
[2017-03-10 15:35] VITALS: BP 111/74
[2017-03-10] MEDS ORDERED: NITR100C62 PO (15:36)
[2017-03-10] MEDS ORDERED: ONDA4TAB10 SL (15:36)
== END 2017-03-10 16:50 | disposition home or self-care (01) ==
LOC: ER 12:41
DX: O23.41 Unspecified infection of urinary tract in pregnancy, first trimester (principal); O21.0 Mild hyperemesis gravidarum; Z3A.00 Weeks of gestation of pregnancy not specified
CPT/HCPCS: 81001; 81025; 87086; 96361; 96374; 99285; J2405; J7030

== ENCOUNTER 2018-10-06 12:30 | Emergency (ER) | payer OTHER ==
[~2018-10-06] VITALS: Ht 160 cm; Wt 91.6 kg
[~2018-10-06 12:30] MED LIST changes: +HYDR-3164 PO; -HYDR-971 PO; +NITR100C62 PO
--- NOTE | 2018-10-06 13:32 | PHYS DOC ---
Past Medical History Past Medical History: No Pertinent History, Other Additional Past Medical Histor: NEUROFIBROIDOSIS, MISCARRIAGE, HYPOGLYCEMIA Past Surgical History: Tonsillectomy, Tubal ligation, Other Additional Past Surgical Histo: ADDENOIDECTOMY Alcohol Use: Occasionally Drug Use: None Adult General Chief Complaint Chief Complaint: RECTAL BLEED HPI HPI 23-year-old female presents to ER with complaints of intermittent 1 year long history of blood in her stools. Patient reports over the past few months it is becoming more frequent. Patient reports she's been having intermittent lower abdominal pain radiating into her back which has been ongoing for past few days. Patient denies urinary or vaginal symptoms w/no concerns for STDs. Patient reports having tubal ligation last year after the of her third child. LMP 08/18. She reports her periods have been more irregular since tubal ligation last year. Patient reports intermittent nausea denies any vomiting or diarrhea episodes. Patient states she had bowel movement today denying any pain during and reports her stools were soft and may have had sm. amt of what appeared to be blood. She denies dizziness/lightheadedness, SOA, or swelling. Pt denies hx of Crohn's or other GI issues. Review of Systems Review of Systems Constitutional: Denies fever or chills. Denies fatigue Eyes: Denies change in visual acuity, redness, or eye pain [] HENT: Denies nasal congestion or sore throat [] Respiratory: Denies cough or shortness of breath [] Cardiovascular: No additional information not addressed in HPI [] GI: Denies vomiting or diarrhea.. Reports lower abd pain into bilat. lower back. Reports intermittent nausea. Reports blood in stool intermittent x1 yr : Denies dysuria or hematuria. Denies vaginal discharge/abnorm. bleeding Musculoskeletal: Denies joint pain. Reports bilat. lower back pain Integument: Denies rash, swelling or skin lesions [] Neurologic: Denies headache, focal weakness or sensory changes. Denies dizziness All other systems were reviewed and found to be within normal limits, except as documented in this note. Allergies Allergies Allergies Coded Allergies Type Severity Reaction Last Updated Verified No Known Drug Allergies 09/13/13 No Physical Exam Physical Exam Constitutional: Well developed, well nourished, no acute distress, non-toxic appearance. [] HENT: Normocephalic, atraumatic, oropharynx moist, nose normal. [] Eyes: Pupils equal, conjunctiva normal, no discharge. [] Neck: Normal range of motion, no tenderness, supple, no stridor. [] Cardiovascular: Heart rate regular rhythm, no murmur [] Lungs & Thorax: Bilateral breath sounds clear to auscultation. Resp. equal/ nonlabored Abdomen: Bowel sounds normal, soft- no distention/rigidity, diffuse tenderness in lower abd- no rebound tenderness or focal area, no masses, no pulsatile masses. [] Skin: Warm, dry, no erythema, no rash. [] Back: Full ROM, bilat. mild CVA tenderness. [] Extremities: No tenderness, no cyanosis, no clubbing, ROM intact, no edema. [] Neurologic: Alert and oriented X 3, normal motor function, normal sensory function, no focal deficits noted. [] Psychologic: Affect normal, judgement normal, mood normal. [] Current Patient Data Vital Signs Vital Signs Date Time Temp Pulse Resp B/P (MAP) Pulse Ox O2 Delivery O2 Flow Rate FiO2 10/06/18 15:30 83 18 123/76 (92) 99 Room Air 10/06/18 12:46 97.9 97.9 Lab Values Laboratory Tests Test 10/06/18 11:30 10/06/18 12:40 White Blood Count 6.7 x10^3/uL (4.0-11.0) Red Blood Count 4.41 x10^6/uL (3.50-5.40) Hemoglobin 13.5 g/dL (12.0-15.5) Hematocrit 39.9 % (36.0-47.0) Mean Corpuscular Volume 91 fL (79-100) Mean Corpuscular Hemoglobin 31 pg (25-35) Mean Corpuscular Hemoglobin Concent 34 g/dL (31-37) Red Cell Distribution Width 12.6 % (11.5-14.5) Platelet Count 243 x10^3/uL (140-400) Neutrophils (%) (Auto) 59 % (31-73) Lymphocytes (%) (Auto) 29 % (24-48) Monocytes (%) (Auto) 7 % (0-9) Eosinophils (%) (Auto) 4 % (0-3) H Basophils (%) (Auto) 0 % (0-3) Neutrophils # (Auto) 3.9 x10^3uL (1.8-7.7) Lymphocytes # (Auto) 1.9 x10^3/uL (1.0-4.8) Monocytes # (Auto) 0.5 x10^3/uL (0.0-1.1) Eosinophils # (Auto) 0.3 x10^3/uL (0.0-0.7) Basophils # (Auto) 0.0 x10^3/uL (0.0-0.2) Sodium Level 140 mmol/L (136-145) Potassium Level 3.8 mmol/L (3.5-5.1) Chloride Level 107 mmol/L (98-107) Carbon Dioxide Level 23 mmol/L (21-32) Anion Gap 10 (6-14) Blood Urea Nitrogen 10 mg/dL (7-20) Creatinine 0.6 mg/dL (0.6-1.0) Estimated GFR (Cockcroft-Gault) 121.8 BUN/Creatinine Ratio 17 (6-20) Glucose Level 95 mg/dL (70-99) Calcium Level 9.1 mg/dL (8.5-10.1) Total Bilirubin 1.0 mg/dL (0.2-1.0) Aspartate Amino Transferase (AST) 18 U/L (15-37) Alanine Aminotransferase (ALT) 40 U/L (14-59) Alkaline Phosphatase 86 U/L (46-116) Total Protein 6.2 g/dL (6.4-8.2) L Albumin 3.5 g/dL (3.4-5.0) Albumin/Globulin Ratio 1.3 (1.0-1.7) Lipase 58 U/L (73-393) L Urine Collection Type Unknown Urine Color Yellow Urine Clarity Clear Urine pH 7.5 Urine Specific [place] 1.020 Urine Protein Negative mg/dL (NEG-TRACE) Urine Glucose (UA) Negative mg/dL (NEG) Urine Ketones (Stick) Negative mg/dL (NEG) Urine Blood Negative (NEG) Urine Nitrite Negative (NEG) Urine Bilirubin Negative (NEG) Urine Urobilinogen Dipstick 0.2 mg/dL (0.2 mg/dL) Urine Leukocyte Esterase Moderate (NEG) Urine RBC Occ /HPF (0-2) Urine WBC 20-40 /HPF (0-4) Urine Squamous Epithelial Cells Mod /LPF Urine Bacteria Few /HPF (0-FEW) Urine Mucus Slight /LPF Urine Test Negative (NEG) Laboratory Tests 10/06/18 11:30 Laboratory Tests 10/06/18 11:30 Microbiology 10/06/18 Urine Culture - Final, Complete 10/06/18 Urine Culture Result 1 (MARIANA) - Final, Complete EKG EKG [] Radiology/Procedures Radiology/Procedures [] Course & Med Decision Making Course & Med Decision Making Pertinent Labs and Imaging studies reviewed. (See chart for details) 1435: Pt was evaluated in the ER for c/o 1 yr hx of intermittent blood in stool and in past few days she has developed lower abd pain into lower back. Discussed test results with patient- with WBCs NL at 6.7 no bands H&H stable at 13.5/39.9- UA with moderate leuks neg. for nitrates/blood and micro with 20-40 WBCs UCG neg. Offered fecal occult for further testing however with H&H stable and UA showing UTI patient is comfortable with no additional tests and is not wanting hemacult/rectal exam. She plans to follow-up with GI doctor so will provide GI referral info on discharge paperwork. Discussed UTI and plans for prescription for Keflex and Pyridium. Pt remains stable and nontoxic in appearance denying any diarrhea/bloody stools while in ER. At time of discussion she is in no visible distress- VS were stable and pt was afebrile. Discharge instructions discussed and education provided on s&s to return to ER for. Dragon Disclaimer Dragon Disclaimer This electronic medical record was generated, in whole or in part, using a voice recognition dictation system. Departure Departure Impression: Primary Impression: UTI (urinary tract infection) Additional Impression: Blood in stool Disposition: HOME, SELF-CARE Condition: STABLE Referrals: NO PCP (PCP) CHEO ENRIQUE MD Patient Instructions: Bloody Stools, Urinary Tract Infection Additional Instructions: Drink plenty of water. Tylenol and/or ibuprofen as directed on container as needed for pain. Avoid excessive amounts of ibuprofen and other NSAIDs as that can cause increased bleeding. Follow-up with gastrointestinal doctor for reevaluation and further care if bloody stools continue. Scripts Phenazopyridine Hcl (PYRIDIUM) 100 Mg Tablet 100 MG PO TID PRN for PAIN, #9 TAB 0 Refills Prov: GULSHAN JOSEPH APRN 10/06/18 Cephalexin (KEFLEX) 500 Mg Capsule 1 CAP PO BID, #14 CAP 0 Refills Prov: GULSHAN JOSEPH APRN 10/06/18 Problem Qualifiers GULSHAN JOSEPH APRN Oct 06, 2018 13:32
[2018-10-06 13:39] LABS: BASO % 0 % (0-3); EOS # 0.3 x10^3/uL (0.0-0.7); EOS % 4 % (0-3); HEMATOCRIT 39.9 % (36.0-47.0); HEMOGLOBIN 13.5 g/dL (12.0-15.5); LYMPH # 1.9 x10^3/uL (1.0-4.8); LYMPH % 29 % (24-48); MEAN CORPUSCULAR HEMOGLOBIN 31 pg (25-35); MEAN CORPUSCULAR HGB CONC 34 g/dL (31-37); MEAN CORPUSCULAR VOLUME 91 fL (79-100); MONO # 0.5 x10^3/uL (0.0-1.1); MONO % 7 % (0-9); NEUT # 3.9 x10^3uL (1.8-7.7); NEUT % 59 % (31-73); PLATELET COUNT 243 x10^3/uL (140-400); RED BLOOD COUNT 4.41 x10^6/uL (3.50-5.40); RED CELL DISTRIBUTION WIDTH 12.6 % (11.5-14.5); WHITE BLOOD COUNT 6.7 x10^3/uL (4.0-11.0)
[2018-10-06 13:49] LABS: U PREG PATIENT NEGATIVE (NEG)
[2018-10-06 13:54] LABS: BILIRUBIN,URINE NEGATIVE (NEG); CLARITY,URINE CLEAR; COLOR,URINE YELLOW; NITRITE,URINE NEGATIVE (NEG); PH,URINE 7.5; PROTEIN,URINE NEGATIVE (NEG-TRACE); UROBILINOGEN,URINE 0.2 mg/dL (0.2 mg/dL)
[2018-10-06 13:54] LABS: CALCIUM 9.1 mg/dL (8.5-10.1); CREATININE 0.6 mg/dL (0.6-1.0); GFR 121.8; POTASSIUM 3.8 mmol/L (3.5-5.1)
[2018-10-06 13:57] LABS: ALBUMIN 3.5 g/dL (3.4-5.0); ALBUMIN/GLOBULIN RATIO 1.3 (1.0-1.7); TOTAL PROTEIN 6.2 g/dL (6.4-8.2)
[2018-10-06 14:14] LABS: BACTERIA,URINE FEW /HPF (0-FEW); RBC,URINE OCC /HPF (0-2); SQUAMOUS EPITHELIAL CELL,UR MOD /LPF; WBC,URINE 20-40 /HPF (0-4)
[2018-10-06] MEDS ORDERED: CEPH-264 PO (14:46)
[2018-10-06] MEDS ORDERED: PHEN100T82 PO (14:46)
[2018-10-06 15:30] VITALS: BP 123/76
== END 2018-10-06 15:31 | disposition home or self-care (01) ==
LOC: ER 12:30
DX: N39.0 Urinary tract infection, site not specified (principal); R11.0 Nausea; K92.1 Melena; Z90.89 Acquired absence of other organs; Z98.51 Tubal ligation status
CPT/HCPCS: 36415; 80053; 81001; 81025; 83690; 85025; 87086; 99283

== ENCOUNTER 2019-08-22 16:37 | Emergency (ER) | payer OTHER ==
[~2019-08-22] VITALS: Ht 160 cm; Wt 79.4 kg
[~2019-08-22 16:37] MED LIST changes: +PHEN100T82 PO
[2019-08-22] MEDS ORDERED: MORPHINE SULFATE 10 MG/ML VIAL. IV STA (16:53)
[2019-08-22] MEDS ORDERED: ONDANSETRON PF 4 MG/2 ML VIAL. IV ONE (17:00)
[2019-08-22] MEDS ORDERED: IV NORMAL SALINE 1000ML BAG 1,000 ML IV ONE (17:00)
--- NOTE | 2019-08-22 17:02 | PHYS DOC ---
Past Medical History Past Medical History: No Pertinent History, Other Additional Past Medical Histor: NEUROFIBROIDOSIS, MISCARRIAGE, HYPOGLYCEMIA Past Surgical History: Tonsillectomy, Tubal ligation, Other Additional Past Surgical Histo: ADDENOIDECTOMY Alcohol Use: Occasionally Drug Use: None Adult General Chief Complaint Chief Complaint: ABDOMINAL PAIN HPI HPI Patient is a 24 year old female who presents with abdominal pain has been ongoing for 2 weeks. The patient has been running a fever last 3 days. She states that she's been running 101 fever. She has associated symptoms of nausea. She's been taking Tylenol and Motrin. She also has been having some diarrhea. The pain is localized to the right lower quadrant. She reports her pain as 7 out of 10 in severity and sharp. The patient states that when she is driving or bending over that her stomach hurts when he hits bumps. It sometimes hurts when she is walking. She states that she is currently on her period. Review of Systems Review of Systems Constitutional: Reports fever or chills [] Eyes: Denies change in visual acuity, redness, or eye pain [] HENT: Denies nasal congestion or sore throat [] Respiratory: Denies cough or shortness of breath [] Cardiovascular: No additional information not addressed in HPI [] GI: Reports abdominal pain, nausea, and diarrhea [] : Denies dysuria or hematuria [] Musculoskeletal: Denies back pain or joint pain [] Integument: Denies rash or skin lesions [] Neurologic: Denies headache, focal weakness or sensory changes [] Complete systems were reviewed and found to be within normal limits, except as documented in this note. Current Medications Current Medications Current Medications Medications (Trade) Dose Ordered Sig/Ronaldo Start Time Stop Time Status Last Admin Dose Admin Iohexol (Omnipaque 300 Mg/ml) 75 ml 1X ONCE 08/22/19 17:15 08/22/19 17:16 DC 08/22/19 17:15 75 ML Morphine Sulfate (Morphine Sulfate) 5 mg 1X STAT 08/22/19 16:53 08/22/19 16:55 DC 08/22/19 17:12 5 MG Ondansetron HCl (Zofran) 4 mg 1X ONCE 08/22/19 17:00 08/22/19 17:01 DC 08/22/19 17:12 4 MG Sodium Chloride 1,000 ml @ 1,000 mls/hr 1X ONCE 08/22/19 17:00 08/22/19 17:59 DC 08/22/19 17:12 1,000 MLS/HR Allergies Allergies Allergies Coded Allergies Type Severity Reaction Last Updated Verified wool Allergy Unknown 08/22/19 Yes Physical Exam Physical Exam Constitutional: Well developed, well nourished, no acute distress, non-toxic appearance. [] HENT: Normocephalic, atraumatic, bilateral external ears normal, oropharynx moist, no oral exudates, nose normal. [] Eyes: PERRLA, EOMI, conjunctiva normal, no discharge. [] Neck: Normal range of motion, no tenderness, supple, no stridor. [] Cardiovascular:Heart rate regular rhythm, no murmur [] Lungs & Thorax: Bilateral breath sounds clear to auscultation [] Abdomen: Bowel sounds normal, soft, RLQ tenderness, rebound tenderness, rovsin g's sign, no masses, no pulsatile masses. [] Skin: Warm, dry, no erythema, no rash. [] Neurologic: Alert and oriented X 3, normal motor function, normal sensory function, no focal deficits noted. [] Psychologic: Affect normal, judgement normal, mood normal. [] Current Patient Data Vital Signs Vital Signs Date Time Temp Pulse Resp B/P (MAP) Pulse Ox O2 Delivery O2 Flow Rate FiO2 08/22/19 18:35 94 18 133/82 (99) 100 Room Air 08/22/19 16:40 98.7 98.7 Lab Values Laboratory Tests Test 08/22/19 16:40 08/22/19 16:51 08/22/19 17:00 Urine Collection Type Unknown Urine Color [place] Urine Clarity Cloudy Urine pH 6.0 Urine Specific [place] >=1.030 Urine Protein 30 mg/dL (NEG-TRACE) Urine Glucose (UA) Negative mg/dL (NEG) Urine Ketones (Stick) 15 mg/dL (NEG) Urine Blood Large (NEG) Urine Nitrite Negative (NEG) Urine Bilirubin Negative (NEG) Urine Urobilinogen Dipstick 0.2 mg/dL (0.2 mg/dL) Urine Leukocyte Esterase Moderate (NEG) Urine RBC Tntc /HPF (0-2) Urine WBC 11-20 /HPF (0-4) Urine Squamous Epithelial Cells Many /LPF Urine Bacteria Moderate /HPF (0-FEW) Urine Mucus Marked /LPF Influenza Type A Antigen Negative (NEGATIVE) Influenza Type B Antigen Positive (NEGATIVE) White Blood Count 4.0 x10^3/uL (4.0-11.0) Red Blood Count 4.57 x10^6/uL (3.50-5.40) Hemoglobin 14.1 g/dL (12.0-15.5) Hematocrit 41.2 % (36.0-47.0) Mean Corpuscular Volume 90 fL (79-100) Mean Corpuscular Hemoglobin 31 pg (25-35) Mean Corpuscular Hemoglobin Concent 34 g/dL (31-37) Red Cell Distribution Width 12.7 % (11.5-14.5) Platelet Count 216 x10^3/uL (140-400) Neutrophils (%) (Auto) 64 % (31-73) Lymphocytes (%) (Auto) 22 % (24-48) L Monocytes (%) (Auto) 11 % (0-9) H Eosinophils (%) (Auto) 3 % (0-3) Basophils (%) (Auto) 1 % (0-3) Neutrophils # (Auto) 2.6 x10^3/uL (1.8-7.7) Lymphocytes # (Auto) 0.9 x10^3/uL (1.0-4.8) L Monocytes # (Auto) 0.4 x10^3/uL (0.0-1.1) Eosinophils # (Auto) 0.1 x10^3/uL (0.0-0.7) Basophils # (Auto) 0.0 x10^3/uL (0.0-0.2) Sodium Level 143 mmol/L (136-145) Potassium Level 3.4 mmol/L (3.5-5.1) L Chloride Level 105 mmol/L (98-107) Carbon Dioxide Level 26 mmol/L (21-32) Anion Gap 12 (6-14) Blood Urea Nitrogen 8 mg/dL (7-20) Creatinine 0.7 mg/dL (0.6-1.0) Estimated GFR (Cockcroft-Gault) 101.1 BUN/Creatinine Ratio 11 (6-20) Glucose Level 99 mg/dL (70-99) Lactic Acid Level 1.3 mmol/L (0.4-2.0) Calcium Level 8.7 mg/dL (8.5-10.1) Total Bilirubin 0.5 mg/dL (0.2-1.0) Aspartate Amino Transferase (AST) 41 U/L (15-37) H Alanine Aminotransferase (ALT) 56 U/L (14-59) Alkaline Phosphatase 78 U/L (46-116) Creatine Kinase 66 U/L (26-192) Total Protein 7.2 g/dL (6.4-8.2) Albumin 4.0 g/dL (3.4-5.0) Albumin/Globulin Ratio 1.3 (1.0-1.7) Laboratory Tests 08/22/19 17:00 Laboratory Tests 08/22/19 17:00 EKG EKG [] Radiology/Procedures Radiology/Procedures [][facility] [address] [place] [address] IMAGING REPORT Signed PATIENT: SASHA EATON SACCOUNT: [id number] : 1995 LOCATION: ER AGE: 24 SEX: F EXAM STATUS: REG ER ORD. PHYSICIAN: TANNER BERG APRN REASON: RLQ abdominal pain, fever PROCEDURE: CT ABD PELV W/ IV CONTRST ONLY EXAM: CT Abdomen and Pelvis with IV contrast CLINICAL HISTORY: Right lower quadrant abdominal pain, fevers . COMPARISON: none TECHNIQUE: Helical CT of the abdomen and pelvis was performed following the administration of intravenous contrast. Axial, coronal and sagittal reformatted images were generated. PQRS compliance statement - One or more of the following individualized dose reduction techniques were utilized for this study: 1. Automated exposure control 2. Adjustment of the mA and/or kV according to patient size 3. Use of iterative reconstruction technique FINDINGS: Lower chest: Linear opacities in the lingula and medial middle lobe likely scarring/atelectasis. Abdomen and Pelvis: No focal liver lesion. Liver is upper limits normal in size measuring 17.9 cm in length. Gallbladder is normal. No biliary ductal dilatation. Spleen is unremarkable. Adrenal glands and pancreas are unremarkable. Symmetric nephrograms. No focal renal lesion. No hydronephrosis. Appendix is normal. No small or large bowel dilatation. Moderate colonic stool content. No bowel obstruction. A few colonic diverticula are seen. No evidence for acute diverticulitis. Small fat-containing periumbilical hernia. No abdominal or pelvic lymphadenopathy. No abdominal or pelvic ascites. Endometrial prominence likely physiologic. No abdominal or pelvic lymphadenopathy. Bones: Osseous structures are grossly unremarkable. IMPRESSION: 1. Appendix is normal. 2. No evidence of bowel obstruction. 3. No abdominal or pelvic lymphadenopathy. 4. No free or loculated abdominal or pelvic collection. Electronically signed by: Jozef Naylor MD (08/22/2019 6:51 PM) [facility] DICTATED and SIGNED BY: JOZEF NAYLOR MD DATE: 08/22/19 482 Course & Med Decision Making Course & Med Decision Making Pertinent Labs and Imaging studies reviewed. (See chart for details) Will get labs, CT, and urine. Will give supportive care. Influenza is positive. Patient also has moderate leukocytes in urine and labs are otherwise unremarkable. Dragon Disclaimer Dragon Disclaimer This electronic medical record was generated, in whole or in part, using a voice recognition dictation system. Departure Departure Impression: Primary Impression: UTI (urinary tract infection) Additional Impression: Influenza Disposition: 01 HOME, SELF-CARE Condition: STABLE Referrals: NO PCP (PCP) Patient Instructions: Influenza Facts, Influenza, Adult, Urinary Tract Infection Additional Instructions: Thank you for visiting [facility]. We appreciate you trusting us with your care. If any additional problems come up don't hesitate to return to visit us. Please follow up with your primary care provider so they can plan additional care if needed and know about the problem that you had. If symptoms worsen come back to the Emergency Department. Any concerning symptoms that start such as chest pain, shortness of air, weakness or numbness on one side of the body, running high fevers or any other concerning symptoms return to the ER. Please fill your medications at any pharmacy and follow the prescription instructions. Please make sure to drink plenty of fluids. If you are unable to drink fluids please return to the ER. Scripts Ondansetron (ONDANSETRON ODT) 4 Mg Tab.rapdis 1 TAB PO PRN Q6-8HRS PRN for NAUSEA, #16 TAB Prov: TANNER BERG APRN 08/22/19 Cephalexin (KEFLEX) 500 Mg Capsule 1 CAP PO BID for 7 Days, #14 CAP 0 Refills Prov: TANNER BERG APRN 08/22/19 Problem Qualifiers TANNER BERG APRN Aug 22, 2019 17:02
[2019-08-22 17:06] LABS: BILIRUBIN,URINE NEGATIVE (NEG); CLARITY,URINE CLOUDY; COLOR,URINE AMBER; NITRITE,URINE NEGATIVE (NEG); PROTEIN,URINE 30 mg/dL (NEG-TRACE); UROBILINOGEN,URINE 0.2 mg/dL (0.2 mg/dL)
[2019-08-22 17:14] LABS: BASO % 1 % (0-3); EOS # 0.1 x10^3/uL (0.0-0.7); EOS % 3 % (0-3); HEMATOCRIT 41.2 % (36.0-47.0); HEMOGLOBIN 14.1 g/dL (12.0-15.5); LYMPH # 0.9 x10^3/uL (1.0-4.8); LYMPH % 22 % (24-48); MEAN CORPUSCULAR HEMOGLOBIN 31 pg (25-35); MEAN CORPUSCULAR HGB CONC 34 g/dL (31-37); MEAN CORPUSCULAR VOLUME 90 fL (79-100); MONO # 0.4 x10^3/uL (0.0-1.1); MONO % 11 % (0-9); NEUT # 2.6 x10^3/uL (1.8-7.7); NEUT % 64 % (31-73); PLATELET COUNT 216 x10^3/uL (140-400); RED BLOOD COUNT 4.57 x10^6/uL (3.50-5.40); RED CELL DISTRIBUTION WIDTH 12.7 % (11.5-14.5)
[2019-08-22] MEDS ORDERED: IOHEXOL 300 MG/ML 100ML VIAL. IV ONE (17:15)
[2019-08-22 17:18] LABS: SQUAMOUS EPITHELIAL CELL,UR MANY /LPF
[2019-08-22 17:19] LABS: BACTERIA,URINE MODERATE /HPF (0-FEW); RBC,URINE TNTC /HPF (0-2)
[2019-08-22 17:21] LABS: INFLUENZA A PATIENT NEGATIVE (NEGATIVE)
[2019-08-22 17:22] LABS: INFLUENZA B PATIENT POSITIVE (NEGATIVE)
[2019-08-22 17:24] LABS: CALCIUM 8.7 mg/dL (8.5-10.1); CREATININE 0.7 mg/dL (0.6-1.0); GFR 101.1; POTASSIUM 3.4 mmol/L (3.5-5.1)
[2019-08-22 17:31] LABS: ALBUMIN/GLOBULIN RATIO 1.3 (1.0-1.7); TOTAL BILIRUBIN 0.5 mg/dL (0.2-1.0); TOTAL PROTEIN 7.2 g/dL (6.4-8.2)
[2019-08-22 18:35] VITALS: BP 133/82
--- NOTE | 2019-08-22 18:54 | RAD ---
EXAM: CT Abdomen and Pelvis with IV contrast CLINICAL HISTORY: Right lower quadrant abdominal pain, fevers . COMPARISON: none TECHNIQUE: Helical CT of the abdomen and pelvis was performed following the administration of intravenous contrast. Axial, coronal and sagittal reformatted images were generated. PQRS compliance statement - One or more of the following individualized dose reduction techniques were utilized for this study: 1. Automated exposure control 2. Adjustment of the mA and/or kV according to patient size 3. Use of iterative reconstruction technique FINDINGS: Lower chest: Linear opacities in the lingula and medial middle lobe likely scarring/atelectasis. Abdomen and Pelvis: No focal liver lesion. Liver is upper limits normal in size measuring 17.9 cm in length. Gallbladder is normal. No biliary ductal dilatation. Spleen is unremarkable. Adrenal glands and pancreas are unremarkable. Symmetric nephrograms. No focal renal lesion. No hydronephrosis. Appendix is normal. No small or large bowel dilatation. Moderate colonic stool content. No bowel obstruction. A few colonic diverticula are seen. No evidence for acute diverticulitis. Small fat-containing periumbilical hernia. No abdominal or pelvic lymphadenopathy. No abdominal or pelvic ascites. Endometrial prominence likely physiologic. No abdominal or pelvic lymphadenopathy. Bones: Osseous structures are grossly unremarkable. IMPRESSION: 1. Appendix is normal. 2. No evidence of bowel obstruction. 3. No abdominal or pelvic lymphadenopathy. 4. No free or loculated abdominal or pelvic collection. Electronically signed by: Jozef Naylor MD (08/22/2019 6:51 PM) [facility]
[2019-08-22] MEDS ORDERED: ONDA4TAB12 PO (19:09)
[2019-08-22] MEDS ORDERED: CEPH-264 PO (19:09)
== END 2019-08-22 19:24 | disposition home or self-care (01) ==
LOC: ER 16:37
DX: N39.0 Urinary tract infection, site not specified (principal); J10.1 Influenza due to other identified influenza virus with other respiratory manifestations; Z98.51 Tubal ligation status; Z88.8 Allergy status to other drugs, medicaments and biological substances
CPT/HCPCS: 36415; 74177; 80053; 81001; 82550; 83605; 85025; 87086; 87804; 96361; 96374; 96375; 99285; J2270; J2405; J7030; Q9967